=== PATIENT | male | born 1995 | race Hispanic/Latino ===

== ENCOUNTER 2017-02-09 11:32 | Emergency (ER) | payer BC, SELFPAY ==
[2017-02-09 14:12] LABS: #Lymphocytes 0.7 thou/uL (1.20-3.40); #Monocytes 0.7 thou/uL (0.11-0.59); #Neutrophils 3.7 thou/uL (1.40-6.50); %Eosinophils 0.2 % (0.0-10.0); %Lymphocytes 12.8 % (21.0-51.0); Hemoglobin 14.6 g/dL (14.0-18.0); Mean Corpuscular HGB CONC 33.1 g/dL (32.0-36.0); Mean Corpuscular Hemoglobin 29.5 pg (27.0-31.0); Mean Corpuscular Volume 89.2 fl (80.0-94.0); Mean Platelet Volume 9.6 fL (7.4-10.4); Platelet Count 119 thou/uL (130-400); RBC Distribution Width 11.8 % (11.5-14.5); Red Blood Cell (RBC) Count 4.94 mill/uL (4.70-6.10); White Blood Cell (WBC) Count 5.1 thou/uL (4.8-10.8)
[2017-02-09 14:29] LABS: PLT Morphology Comment Appears Decreased; RBC Morphology Normal
[2017-02-09 14:31] LABS: ALT (SGPT) 19 U/L (8-55); AST (SGOT) 28 U/L (5-34); Albumin 4.5 g/dL (3.5-5.0); Alkaline Phosphatase 83 U/L (40-150); Anion Gap 13 mmol/L (10-20); BUN (Urea Nitrogen) 10 mg/dL (8.9-20.6); Bilirubin, Total 0.3 mg/dL (0.2-1.2); Calc. Creatinine Clearance 0 mL/min (70-130); Calcium 9.6 mg/dL (7.8-10.44); Carbon Dioxide 25 mmol/L (22-29); Chloride 101 mmol/L (98-107); Estimated GFR-MDRD Greater than 90; Globulin 3.2 g/dL (2.4-3.5); Glucose 91 mg/dL (70-105); Potassium 4.3 mmol/L (3.5-5.1); Protein, Total 7.7 g/dL (6.0-8.3); Sodium 135 mmol/L (136-145)
[2017-02-09] MEDS ORDERED: Ketorolac Tromethamine 30 MG/ML VIAL ONE (16:29)
[2017-02-09] MEDS ORDERED: Ondansetron ODT 8 MG TAB ONE (16:29)
== END 2017-02-09 17:14 | disposition home or self-care (01) ==
LOC: ERS 11:32
DX: B34.9 Viral infection, unspecified (principal); J45.909 Unspecified asthma, uncomplicated
CPT/HCPCS: 36415; 80053; 85025; 96372; J1885

== ENCOUNTER 2017-02-11 22:46 | Emergency (ER) | payer BC ==
[2017-02-11 23:26] LABS: #Lymphocytes 1.3 thou/uL (1.20-3.40); #Monocytes 0.6 thou/uL (0.11-0.59); #Neutrophils 7.3 thou/uL (1.40-6.50); %Basophils 0.1 % (0.0-1.0); %Eosinophils 0.1 % (0.0-10.0); %Lymphocytes 14.4 % (21.0-51.0); %Neutrophils 79.4 % (42.0-75.0); Hemoglobin 15.6 g/dL (14.0-18.0); Mean Corpuscular Hemoglobin 29.2 pg (27.0-31.0); Mean Corpuscular Volume 88.4 fl (80.0-94.0); Mean Platelet Volume 9.6 fL (7.4-10.4); Platelet Count 122 thou/uL (130-400); RBC Distribution Width 11.8 % (11.5-14.5); Red Blood Cell (RBC) Count 5.33 mill/uL (4.70-6.10); White Blood Cell (WBC) Count 9.2 thou/uL (4.8-10.8)
[2017-02-11 23:52] LABS: ALT (SGPT) 18 U/L (8-55); AST (SGOT) 28 U/L (5-34); Albumin 4.7 g/dL (3.5-5.0); Alkaline Phosphatase 83 U/L (40-150); Anion Gap 14 mmol/L (10-20); BUN (Urea Nitrogen) 10 mg/dL (8.9-20.6); Bilirubin, Total 0.3 mg/dL (0.2-1.2); Calc. Creatinine Clearance 0 mL/min (70-130); Calcium 9.9 mg/dL (7.8-10.44); Carbon Dioxide 26 mmol/L (22-29); Chloride 100 mmol/L (98-107); Estimated GFR-MDRD Greater than 90; Globulin 3.4 g/dL (2.4-3.5); Glucose 99 mg/dL (70-105); Lipase 21 U/L (8-78); Potassium 4.2 mmol/L (3.5-5.1); Protein, Total 8.1 g/dL (6.0-8.3); Sodium 136 mmol/L (136-145)
[2017-02-12 00:12] LABS: Bilirubin Negative (Negative); Blood, Urine Negative (Negative); Clarity CLEAR (Clear); Glucose, Urine (Dipstick) Negative (Negative); Leukocyte Negative (Negative); Nitrite Negative (Negative); Protein, Urine (Dipstick) 30 mg/dL (Neg-Trace); Specific Gravity, Urine 1.027 (1.002-1.036); Urobilinogen 0.2 mg/dL (0.2-1.0)
[2017-02-12 00:15] LABS: Bacteria/HPF None Seen HPF (None Seen); Hyaline Casts/LPF 4-6 HYALINE CAST LPF (0-3 Hyaline); Squamous Epithelial 0-3 HPF (0-3)
[2017-02-12] MEDS ORDERED: Ondansetron HCl/PF 4 MG/2 ML Vial ONE (01:40)
[2017-02-12] MEDS ORDERED: Fentanyl 100 MCG/2 ML VIAL ONE (01:40)
[2017-02-12 02:44] LABS: Amphetamine Not Detected (NotDetected); Barbiturates Screen Not Detected (NotDetected); Benzodiazepine Screen Not Detected (NotDetected); Cocaine Metabolite Screen Not Detected (NotDetected); Medtox Control Line Valid? VALID (VALID); Medtox Reader # READER 1; Methadone Not Detected (NotDetected); Methamphetamine Not Detected (NotDetected); Opiate Screen Not Detected (NotDetected); Oxycodone Screen Not Detected (NotDetected); Phencyclidine (PCP) Not Detected (NotDetected); THC/Cannabinoid Screen Not Detected (NotDetected); Tricyclic Screen Not Detected (NotDetected)
--- NOTE | 2017-02-12 08:31 | CT ---
PRELIMINARY REPORT/[facility]/EMERGENCY AFTER HOURS PROCEDURE: EXAM: CT Abdomen and Pelvis With Intravenous Contrast EXAM DATE/TIME: Exam ordered 02/12/2017 1:38 AM CLINICAL HISTORY: 22 years old, male; Pain; Abdominal pain; Periumbilical; Patient HX: 22 yo m presents to ed C/O abdom inal pain. Pt was here on saturday with headache, stomach pain, vomiting, and decreased po intake. Pt had negative flu test. Reports since saturday but states abdominal pain is worsening. Pt reports isreal n is sharp, localized to umbilical region, no radiation, 10/10 pain. States he is still vomiting 2-4 times a day. Also reports dizziness and subjective fever. Denies groin or testicular pain. Denies dif ficulty urinating. Last bm within last 24 hours. TECHNIQUE: Axial computed tomography images of the abdomen and pelvis with intravenous contrast. Coronal reformatted images were created and reviewed. CONTRAST: 95 mL of isovue 370 administered intravenously. COMPARISON: No relevant prior studies available. FINDINGS: Lower thorax: The visualized portions of the lung bases are normal. ABDOMEN: Liver: There are no focal liver lesions present. Gallbladder and bile ducts: The gallbladder is normal. There is no evidence of biliary ductal dilatio n. No calcified stones. Pancreas: The pancreas is normal. No ductal dilation. Spleen: The spleen is normal. Adrenals: The adrenal glands are normal. Kidneys and ureters: The kidneys are normal. No hydronephrosis. Stomach and bowel: There is diffuse fluid throughout the small and proximal large bowel suggestive of an enterocolitis pattern. The stomach is normal. The duodenum is unremarkable. There is mild distal colonic constipation. Appendix: A normal appendix is identified. PELVIS: Bladder: The bladder is normal. Reproductive: The prostate gland and seminal vesicles are normal. ABDOMEN and PELVIS: Intraperitoneal space: Normal. No free air. No significant fluid collection. Bones/joints: No acute fracture. No dislocation. Soft tissues: Normal. Vasculature: The vasculature is normal. No abdominal aortic aneurysm. Lymph nodes: Normal. No enlarged lymph nodes. IMPRESSION: There is diffuse fluid throughout the small and proximal large bowel suggestive of an enterocolitis p attern. Thank you for allowing us to participate in the care of your patient. Dictated and Authenticated by: Michael Palacio MD 02/12/2017 2:10 AM Central Time ([place] & [place]) EMERGENT AFTER HOURS CT ABDOMEN AND PELVIS PERFORMED WITH INTRAVENOUS CONTRAST ENHANCEMENT: History: Abdominal pain. FINDINGS: The lung bases are clear. The liver, spleen, pancreas, and gallbladder regions appear unremarkable. Right and left adrenal glands and right and left kidneys are normal in size. There is no significant periaortic or mesenteric adenopathy. There is fluid within both small and large bowel without signifi cant distention. CT OF PELVIS WITH CONTRAST ENHANCEMENT: The appendix is normal. No adenopathy, mass, or free fluid. A moderate amount of stool is seen in the rectosigmoid region. IMPRESSION: 1. Mild fluid filled distention of small, and to a lesser extent, large bowel, suggesting enteritis. 2. This report is in agreement with the temporary report issued by [facility]. POS: [facility]
[2017-02-12] MEDS ORDERED: ISOVUE-370 76%-LOCM 1 ML ONE (11:38)
== END 2017-02-12 04:12 | disposition home or self-care (01) ==
LOC: ERS 22:46
DX: K52.9 Noninfective gastroenteritis and colitis, unspecified (principal); J45.909 Unspecified asthma, uncomplicated
CPT/HCPCS: 36415; 74177; 80053; 80306; 81003; 81015; 83690; 85025; 96361; 96374; 96375; J2405; J3010

== ENCOUNTER 2020-03-02 14:35 | Outpatient (CLI) | payer BC ==
--- NOTE | 2020-03-02 15:20 | ULT ---
Scrotal sonogram with duplex evaluation HISTORY: Erectile dysfunction. FINDINGS: The right testicle measures up to 5.2 cm length and the left 5.0 cm. Each has a normal appe arance with good color and spectral Doppler flow. Images at the time of the exam were obtained of vascular structures within each inguinal canal, right greater than left, with mild distention upon Va lsalva. The distended veins do not extend into the scrotum. No scrotal fluid. IMPRESSION : No abnormalities are demonstrated.
== END 2020-03-02 14:36 | disposition home or self-care (01) ==
LOC: BICULT 14:35
PROVIDERS: ATTEND Student in an Organized Health Care Education/Training Program
DX: N52.1 Erectile dysfunction due to diseases classified elsewhere (principal)
CPT/HCPCS: 76870; 93976